=== PATIENT | female | born 1985 | race Caucasian/White ===

== ENCOUNTER 2019-10-05 02:14 | Inpatient (IN) ==
[2019-10-05] MEDS ORDERED: OXYTOCIN 30 UNITS/500 ML BAG IV PRN ×3 (03:14→19:24)
[2019-10-05] MEDS: LACTATED RINGER'S 1,000 ML IV PRN ×5 (03:29→17:26)
--- NOTE | 2019-10-05 03:29 | History & Physical Report ---
Date of Service October 05, 2019 Assessment & Plan (1) Diet controlled gestational diabetes mellitus (GDM), antepartum: 33yo at 39.1 weeks GA. PROM. 1. Fetus: Cat 1 at present. Had variable decel soon after presentation 2. Labor: Will augment with oxytocin 3. A1gDM: Check BG 4. Abnormal NTD screening. Normal anatomy scan. Will notify peds. (2) Supervision of elderly primigravida, antepartum: (3) Abnormal MSAFP (maternal serum alpha-fetoprotein), elevated: History of Present Illness Primary Care Provider: NEY Abebe 33yo at 39.1 weeks GA. Patient presents with PROM. Reports mild ctx. Denies VB/LOF. Good FM. complications: 1. AMA *weekly NST's @36 wks 2. Obestiy *BMI 35 or> at start of - Growth US @32 wks w/ EFW 36% 3. 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 AFP Positive for NTD- HK (05/03/19) - Risk 1-230 - Normal Anatomy U/S here - declines MFM consult - weekly NST's at 36 weeks 5. Diet Controlled GDM -AC U/S [id number] at 24 weeks Labs: Blood Type A Positive 03/03/19 Antibody Screen NEGATIVE 03/03/19 Hemoglobin 11.8 g/dL (12.0-16.0) L 07/20/19 Hematocrit 35.3 % (37-47) L 07/20/19 Mean Corpuscular Volume 88.1 fL (80-100) 03/03/19 Platelet Count 287 K/uL (130-400) 03/03/19 Rubella IgG Antibody Immune (Immune) 03/03/19 Rapid Plasma Reagin Nonreactive (Nonreactive) 03/03/19 Hepatitis B Surface Antigen Neg (Neg) 03/03/19 HIV (1&2) Ab and P24 Ag, 4th Gener Neg (Neg) 03/03/19 Glucose 1 Hour 50 gm Load 179 mg/dl (70-130) H 04/27/19 Maternal Serum Alpha Fetoprotein 70.9 ng/mL 04/27/19 OB Optional Labs: Chlamydia trachomatis RNA NOT DETECTED (NOT DETECTED) 03/03/19 Neisseria gonorrhoeae RNA NOT DETECTED (NOT DETECTED) 03/03/19 Alpha Fetoprotein Triple Screen SEE NOTE 04/27/19 Allergies Allergy/AdvReac Type Severity Reaction Status Date / Time No Known Allergies Allergy Verified 10/05/19 02:41 Home Medications Home Medications Medication Instructions Recorded Confirmed Type prenat.vits,franky,kmo-lgbj-jgwpr 1 tab PO DAILY 02/25/19 10/05/19 History Patient History Social History Smoking Status: Never smoker Hx Alcohol Use: No Hx Substance Use: No Preferred Language: Swedish Communication Ability: Effective Beliefs That Will Affect Care: None marital status: marital status details: Francois Mejia ([phone] Current Living Situation: Spouse Current Living Situation Comment: lives with current occupational status: employed current occupation: 3d specialist Other Information That Helps Us Care for You: No Feels Safe at Home: Yes Safety Concerns: Feels Safe At This Time Physical Exam Gastrointestinal (Abdomen): Percussion/Palpation: abdomen soft; abdomen nontender, no guarding and abdomen not rigid Genitourinary: OB Exam Abdomen: + vertex Manual OB Exam: + cervical dilation 1 cm, + cervical effacement 50%, + station -1 and + amniotic fluid (Grossly ruptured) clear OB Exam Monitor Tracing: + external FHT monitor used, + external uterine monitor used, + category I, + category II (Variable decel soon after admission. Resolved ), + normal FHT variability and + variable decelerations Results & Data ([facility]) Vital Signs (Past 12 Hours) Vital Signs Temp Pulse Resp BP 10/05/19 02:41 37.1 C 18 10/05/19 02:40 89 121/68 Coding Level of Care Code None Diagnoses Diet controlled gestational diabetes mellitus (GDM), antepartum O24.410 Supervision of elderly primigravida, antepartum O09.519 Abnormal MSAFP (maternal serum alpha-fetoprotein), elevated O28.0
[2019-10-05 03:35] LABS: Hematocrit (blood only) 31.6 % (37-47); Hemoglobin 10.9 g/dL (12.0-16.0); Mean Corpuscular Hemoglobin 28.2 pg (25-34); Mean Corpuscular Volume 81.9 fL (80-100); Mean Platelet Volume 8.9 fL (7.4-10.4); Platelet Count 161 K/uL (130-400); RDW Coefficient of Variation 14.5 % (11.5-14.5); RDW Standard Deviation 43.2 fL (36.4-46.3); Red Blood Count 3.86 M/uL (4.2-5.4); White Blood Count 8.31 K/uL (4.8-10.8)
[2019-10-05 03:40] LABS: Mean Corpuscular Hgb Conc 34.5 g/dL (32-36)
[2019-10-05] MEDS ORDERED: BUPIVACAINE 0.25% 30 ML VIAL ONE (11:46)
[2019-10-05] MEDS ORDERED: ePHEDrine sulfate 50 MG/ML AMP ONE (11:46)
--- NOTE | 2019-10-05 11:46 | Labor Progress Brief Note ---
Date of Service October 05, 2019 Subjective Starting to feel more uncomfortable with contractions. FHT Cat 1 [place] Q 2 SVE /-2 She would like to get epidural. Assessment & Plan Admission and Anticipated Discharge Date Admission Date: October 05, 2019 Results & Data ([facility]) Vital Signs (Past 12 Hours) Vital Signs Temp Pulse Resp BP 10/05/19 11:43 80 128/80 10/05/19 11:29 10/05/19 11:04 36.6 C 10/05/19 10:42 79 123/73 10/05/19 10:29 20 10/05/19 09:59 20 10/05/19 09:43 74 140/78 10/05/19 09:29 20 10/05/19 08:59 36.8 C 10/05/19 08:42 78 115/71 10/05/19 08:29 10/05/19 07:59 20 10/05/19 07:43 71 134/82 10/05/19 07:29 10/05/19 07:05 36.8 C 10/05/19 06:42 81 18 125/72 10/05/19 06:19 36.6 C 10/05/19 05:42 66 18 136/82 10/05/19 04:42 36.8 C 68 16 112/69 10/05/19 02:41 37.1 C 10/05/19 02:40 89 121/68 Coding Level of Care Code None
[2019-10-05] MEDS ORDERED: fentaNYL citrate 100 MCG/2 ML VIAL ONE (11:47)
[2019-10-05] MEDS ORDERED: fentaNYL 2MCG/ML ROPIV 1.25MG/ML 100 ML BAG EPI ONE (11:47)
--- NOTE | 2019-10-05 13:25 | Anesthesiology Consultation ---
Date of Service October 05, 2019 Assessment & Plan (1) Encounter for pre-operative examination: Chart Review Chart Review: Patient NOT seen in Pre Admission Testing and Acceptable Risk for Labor Epidural Consults Requested none ASA ASA3 Proposed Anesthesia Anesthesia Type: Labor Epidural Risk / Benefits Reviewed With: PT / POA / Parent / Guardian, Accepts Plan and Informed Consent Obtained History Height/Weight Height: 5 ft 2.5 in Weight: 94.347 kg Allergies Allergy/AdvReac Type Severity Reaction Status Date / Time No Known Allergies Allergy Verified 10/05/19 02:41 Medications Home Medications Medication Instructions Recorded Confirmed Last Taken prenat.vits,franky,fgy-uigj-whbni 1 tab PO DAILY 02/25/19 10/05/19 10/04/19 08:00 Active Medications Generic Name Dose Route Start Last Admin Trade Name Freq PRN Reason Stop Dose Admin Lactated Ringer's 1,000 mls @ 125 mls/hr 10/05/19 03:14 10/05/19 13:27 Lr IV 10/07/19 03:13 125 mls/hr .Q8H PRN Administration L&D Protocol Protocol Oxytocin 30 units in 500 mls @ 10 mls/hr 10/05/19 03:16 10/05/19 11:43 Pitocin IV 10/07/19 03:15 0.6 units/hr .Q24H PRN 10 mls/hr Labor Induction/Augmentation Titration Protocol 0.6 UNITS/HR NPO Date Last Intake of Fluids: 10/05/19 Time Last Intake of Fluids: 13:23 Date Last Intake of Solids: 10/04/19 Time Last Intake of Solids: 18:00 Past Medical History Medical History Advanced maternal age (AMA) in Encounter for anatomic survey Hx of varicella Pilonidal cyst Exercise / Class Metabolic Activity II 4-5 Yardwork/Stairs/Walk up hill Past Family History Family History Mother Dyslipidemia Hypertension Father Heart disease Myocardial infarction Past Surgical History Surgical History Maxwell teeth removed Past Anesthesia History No Hx of Anesthesia Complications History of PONV No Hx of PONV Social History Smoking Status: Never smoker Hx Alcohol Use: No Hx Substance Use: No Review of Systems Negative for chest pain or shortness of breath. Patient denies history of abnormal bleeding or bleeding disorder. Patient denies active use of anticoagulants other than low dose aspirin. Patient denies numbness, tingling or weakness in lower extremities. Physical Exam Vital Signs Last Vital Signs Temp 36.6 C 10/05/19 11:04 Pulse 99 H 10/05/19 13:20 Resp 20 10/05/19 12:29 BP 131/81 10/05/19 12:43 Pulse Ox 99 10/05/19 13:20 Constitutional + obese ENMT Mouth: + small oral opening; no TMJ abnormality Thyromental Distance: < 3.5 Finger Breadths Mallampati Class: III Neck normal visual inspection; neck extension not limited Respiratory normal respiratory effort Auscultation: lungs clear to auscultation bilaterally Cardiovascular Rate/Rhythm: regular rate and regular rhythm Heart Sounds: no murmur Neurologic moves all extremities Motor/Sensory: no sensory deficit Psychiatric Orientation: alert and oriented x 3 Testing Laboratory Results 10/05/19 03:24 10/05/19 05:11 POC Glucose 80
[2019-10-05] MEDS ORDERED: ONDANSETRON INJ 2 MG/ML 2 ML VIAL IV PRN (14:35)
[2019-10-05] MEDS ORDERED: DiphenhydrAMINE HCL 50 MG/ML VIAL IV PRN (14:35)
[2019-10-05] MEDS ORDERED: fentaNYL 2MCG/ML ROPIV 1.25MG/ML 100 ML BAG EPI PRN (14:35)
[2019-10-05] MEDS ORDERED: ePHEDrine sulfate 50 MG/ML AMP IV PRN (14:35)
[2019-10-05] MEDS ORDERED: NALOXONE HCL 1 MG in SODIUM CHLORIDE 0.9% 1000ML 1,000 ML IV PRN (14:35)
[2019-10-05] MEDS ORDERED: NALOXONE HCL 0.4 MG/1 ML VIAL/CARP IV PRN (14:35)
--- NOTE | 2019-10-05 19:04 | Delivery Summary ---
Vaginal Delivery Summary Date of Service October 05, 2019 Vaginal Delivery Summary Vaginal Delivery Summary: Pre-delivery diagnoses: 33yo @ 39 1/7, PROM, AMA, GDMA1, obesity, carrier of CF (FOB neg), AFP positive for NTD with normal anatomy Post-delivery diagnoses: same Procedure: spontaneous vaginal delivery, repair of 2nd degree perineal laceration, manual extraction of placenta Surgeon: Wendy Ibarra DO Complications: none Findings: Viable female . Apgars: 7/9 . Weight pending, please see nursery records Estimated blood loss: 300ml Description of delivery: The patient progressed to complete with epidural anesthesia. She then began to push. She spontaneously vaginally delivered a viable from the cephalic presentation. The head delivered in KEANU position. The anterior shoulder delivered, followed by the posterior shoulder, followed by the body. Nuchal cord x 1, loose, easily reduced. The baby was placed on mother's abdomen and a spontaneous cry was heard. Delayed cord clamping was employed, and the cord was doubly clamped and cut. Cord blood was obtained. The placenta was delivered by manual extraction from the uterus after avulsion of the umbilical cord. The uterus and vagina were swept of clots and debris. IV pitocin was given. The uterus became firm. The cervix, vagina, and perineum were inspected and a 2nd degree laceration was noted and repaired in standard fashion with 3-0 vicryl. Excellent hemostasis was observed. The mother and baby are recovering in stable and good condition in the room. Sponge, needle, and instrument counts were correct x 2. Wendy Ibarra DO [facility] Vaginal Delivery Charge Vaginal Delivery Codes: 86621 global code for the antepartum, delivery, and post-
--- NOTE | 2019-10-05 19:17 | Anesthesia Procedure Note ---
Date of Service October 05, 2019 Anesthesia Post Epidural Note Vital Signs Vital Signs: Temp Pulse Resp BP Pulse Ox 36.6 C 105 H 18 104/56 L 94 10/05/19 18:55 10/05/19 19:10 10/05/19 18:55 10/05/19 19:10 10/05/19 18:58 Pain Intensity Abdomen: Pain Intensity: 1 Notes Mental Status: alert / awake / arousable and participated in evaluation Nausea / Vomiting: adequately controlled Pain: adequately controlled Airway Patency, RR, SpO2: stable & adequate BP & HR: stable & adequate Hydration State: stable & adequate Neuraxial Anesthesia: was administered and sensory block is resolving Anesthetic Complications: no major complications apparent and Pt Satisfied with anesthetic care Epidural: Removed without complications and With tip intact Notes: Epidural site clean, dry and intact. No signs of edema, erythema or bruising at insertion site. Pt instructed to request anesthesia if she has residual lower extremity numbness or if she develops lower extremity pain or weakness, back pain or headache.
[2019-10-05] MEDS ORDERED: BENZOCAINE 20% AER SPR 82.5 GM CAN EXT PRN (19:24)
[2019-10-05] MEDS ORDERED: OXYCODONE/ACETAMINOPHEN 5mg/325mg TAB PO PRN (19:24)
[2019-10-05] MEDS ORDERED: DIPHTHERIA/TETANUS/PERTUSSIS 0.5 ML SYR/VIAL IM ONE (19:24)
[2019-10-05] MEDS ORDERED: ACETAMINOPHEN 325 MG TAB PO PRN (19:24)
[2019-10-05] MEDS ORDERED: bisacodyL 10 MG SUPP PR PRN (19:24)
[2019-10-05] MEDS ORDERED: HYDROCORTISONE ACETATE 25 MG SUPP PR PRN (19:24)
[2019-10-05] MEDS ORDERED: IBUPROFEN 600 MG TAB PO PRN (19:24)
[2019-10-05] MEDS ORDERED: SUPERCREAM 0.870% 15 GM JAR EXT PRN (19:24)
[2019-10-05] MEDS: DOCUSATE SODIUM 100 MG CAP PO SCH (20:25)
[2019-10-05] MEDS: CEFAZOLIN 1000MG 1,000 MG/7.5 ML SYR IV SCH (20:26)
[2019-10-06] MEDS: CEFAZOLIN 1000MG 1,000 MG/7.5 ML SYR IV SCH (05:08)
--- NOTE | 2019-10-06 06:27 | Obstetrical Progress Note ---
Date of Service <Arsh Caba MD - Last Filed: 10/06/19 06:55> October 06, 2019 Assessment & Plan <Arsh Caba MD - Last Filed: 10/06/19 06:55> (1) : - Feels well today. Eating well, voiding well, ambulating well. - Pain well controlled with analgesics. - Routine care - After discharge will have 6 week followup. Subjective <Arsh Caba MD - Last Filed: 10/06/19 06:55> Cadence is a 33 y/o female ; PPD #1 following spontaneous vaginal delivery at 39+ weeks; doing well this morning; light abdominal cramping & 1/10 pain well managed on analgesics; voiding well; tolerating meals overnight and able to ambulate some; some persistent lochia with some improvement this morning. Review of Systems Constitutional: denies fever, chills, sweat, headache Respiratory: denies shortness of breath, difficulty breathing Cardiac: denies chest pain, palpitations, chest pressure Breast: denies breast pain : denies dysuria Physical Exam <Arsh Caba MD - Last Filed: 10/06/19 06:55> General: Alert, oriented. No acute distress. Cardiac: Regular rate and rhythm, no murmurs/rubs/gallops. Respiratory: Clear to auscultation bilaterally a/p, no wheezes/rales/rhonchi. No increased work of breathing. Symmetrical chest rise. No respiratory distress. Abdomen: Soft, nontender, nondistended. Bowel sounds present. Uterus: Uterine fundus firm, palpable 1cm below umbilicus. Lower Extremities: No lower extremity edema or swelling. No deep calf pain. Chery's negative bilaterally. Results & Data <Arsh Caba MD - Last Filed: 10/06/19 06:55> Vital Signs (Past 12 Hours) Vital Signs Temp Pulse Pulse Resp BP BP Pulse Ox 10/06/19 04:45 36.7 C 83 18 108/63 10/05/19 23:50 36.4 C L 72 20 129/76 10/05/19 21:25 36.7 C 101 H 18 107/75 10/05/19 20:55 36.8 C 100 H 18 101/61 10/05/19 20:40 101 H 108/61 10/05/19 20:25 101 H 18 108/57 L 10/05/19 20:10 88 102/56 L 10/05/19 19:57 82 18 95/55 L 10/05/19 19:40 89 18 102/51 L 10/05/19 19:25 95 H 18 102/56 L 10/05/19 19:10 36.7 C 105 H 18 104/56 L 10/05/19 18:58 102 H 94 10/05/19 18:56 102 H 96 10/05/19 18:55 36.6 C 101 H 18 106/57 L 10/05/19 18:53 107 H 94 10/05/19 18:51 103 H 97 10/05/19 18:48 108 H 94 10/05/19 18:46 106 H 96 10/05/19 18:41 111 H 94 10/05/19 18:40 103 H 132/60 94 10/05/19 18:36 136 H 98 10/05/19 18:31 139 H 90 10/05/19 18:27 127 H 92 10/05/19 18:26 124 H 95 <Wendy Ibarra DO - Last Filed: 10/06/19 09:22> Co-Signing Physician Notes Resident Physician Supervision Note: I was present with Dr. Baldwin during the history and exam. I discussed the case with the resident and agree with the findings and plan as documented in the note. Any exceptions or clarifications are listed here: PPD#1 doing well. Anticipate DC home tomorrow. Documented By: Wendy Ibarra DO Resident Activity Tracking <Arsh Caba MD - Last Filed: 10/06/19 06:55> Resident Involvement: Resident Care Provided Care Provided: OB Delivery
[2019-10-06 06:47] LABS: Hematocrit (blood only) 30.7 % (37-47)
[2019-10-06] MEDS: PRENATAL VITAMIN 1 TAB PO SCH ×2 (07:42→13:05)
[2019-10-06] MEDS: DOCUSATE SODIUM 100 MG CAP PO SCH ×2 (07:43→20:38)
[2019-10-06] MEDS ORDERED: NON-FORMULARY MEDICATION (Prenat.Vits,Cal,Min-Iron-Folic 1 TAB) PO SCH (09:00)
[2019-10-06] MEDS ORDERED: bisacodyL 5 MG TABEC PO SCH (20:00)
--- NOTE | 2019-10-07 07:02 | Obstetrical Progress Note ---
Date of Service October 07, 2019 Assessment & Plan (1) examination following vaginal delivery: stable, ready for d/c home, instructions reviewed. plan 6 wk pp check up. bottle, rh pos, ri. Day #:: 2 Subjective Ambulation: ambulating normally Voiding: no voiding problems Diet Tolerance:: regular diet Lochia:: Small Feeding Type:: bottle feeding no pain issues. bottom is intermittently sore. has chosen to bottle feed. Physical Exam Constitutional WD/WN, vitals as above Respiratory normal respiratory effort, lungs clear to auscultation Cardiovascular Rate/Rhythm: regular rate and regular rhythm Gastrointestinal (Abdomen) Inspection/Auscultation: abdomen normal to inspection Percussion/Palpation: abdomen soft fundus firm 1 cm below umbilicus Musculoskeletal nt calves no edema Neurologic grossly normal Psychiatric A+Ox3, euthymic affect Results & Data ([facility]) Vital Signs (Past 12 Hours) Vital Signs Temp Pulse Resp BP Pulse Ox 10/07/19 03:25 98.4 F 76 18 108/69 99 10/06/19 23:35 98.2 F 76 18 113/78 99 10/06/19 20:45 97.9 F 82 16 122/82 100
[2019-10-07] MEDS: DOCUSATE SODIUM 100 MG CAP PO SCH (07:51)
[2019-10-07] MEDS: PRENATAL VITAMIN 1 TAB PO SCH (07:51)
== END 2019-10-07 18:40 | disposition home or self-care (01) | DRG 807 ==
LOC: OPB 02:14 → 4S1 02:17 → 4S2 21:18

== ENCOUNTER 2022-08-27 06:54 | Inpatient (IN) ==
[2022-08-27] MEDS ORDERED: LIDOCAINE 1% LOCAL 20 ML VIAL ONE (07:10)
[2022-08-27] MEDS ORDERED: OXYTOCIN 10 UNITS/ML 10ML VIAL IM ONE (07:39)
[2022-08-27] MEDS ORDERED: HYDROCORTISONE ACETATE 25 MG SUPP PR PRN (07:39)
[2022-08-27] MEDS ORDERED: LIDOCAINE 1% LOCAL 20 ML VIAL INFIL PRN (07:39)
[2022-08-27] MEDS ORDERED: miSOPROStoL 200 MCG TAB PR ONE (07:39)
[2022-08-27] MEDS ORDERED: BENZOCAINE 20% AER SPR 82.5 GM CAN EXT PRN (07:39)
[2022-08-27] MEDS ORDERED: bisacodyL 10 MG SUPP PR PRN (07:39)
[2022-08-27] MEDS ORDERED: DIPHTHERIA/TETANUS/PERTUSSIS Vaccine (Tdap, Age 7+yrs) 0.5mL SYR/VL IM ONE (07:39)
[2022-08-27] MEDS ORDERED: ACETAMINOPHEN 325 MG TAB PO PRN (07:39)
[2022-08-27] MEDS ORDERED: OXYTOCIN 30 UNITS/500 ML BAG IV PRN (07:39)
[2022-08-27 08:18] LABS: Hematocrit (blood only) 33.5 % (37.0-47.0); Hemoglobin 11.1 g/dl (12.0-16.0); Mean Corpuscular Hemoglobin 26.9 pg (25.0-34.0); Mean Corpuscular Hgb Conc 33.1 g/dL (32.0-36.0); Mean Corpuscular Volume 81.3 fL (80.0-100.0); Mean Platelet Volume 9.6 fL (9.4-12.4); Platelet Count 155 K/uL (130-400); RDW Coefficient of Variation 15.8 % (11.5-14.5); RDW Standard Deviation 46.7 fL (36.4-46.3); Red Blood Count 4.12 M/uL (4.20-5.40); White Blood Count 12.87 K/ul (4.8-10.8)
[2022-08-27] MEDS: PRENATAL VITAMIN 1 TAB PO SCH (09:21)
[2022-08-27] MEDS: FERROUS SULFATE 325 MG TAB PO SCH (09:22)
[2022-08-27] MEDS: DOCUSATE SODIUM 100 MG CAP PO SCH ×2 (09:22→20:22)
[2022-08-27] MEDS ORDERED: OXYTOCIN 10 UNITS/ML VIAL ONE (09:33)
--- NOTE | 2022-08-27 10:11 | Delivery Summary ---
DATE OF SERVICE: 08/27/2022. PROCEDURE: Normal spontaneous vaginal delivery with second-degree perineal laceration repair. SURGEON: Nando Cartagena MD. PREOPERATIVE DIAGNOSES: 1. Single intrauterine at 40 weeks 6 days gestational age. 2. Spontaneous precipitous labor. 3. Gestational diabetes. 4. Advanced maternal age. 5. BMI greater than 35. POSTOPERATIVE DIAGNOSES: 1. Single intrauterine at 40 weeks 6 days gestational age. 2. Spontaneous precipitous labor. 3. Gestational diabetes. 4. Advanced maternal age. 5. BMI greater than 35. 6. Status post procedure. ESTIMATED BLOOD LOSS: 300 mL DRAINS: None. FLUIDS: None. COMPLICATIONS: None. FINDINGS: Viable with weight pending and Apgars of 7 and 9 at one and five minutes respect jaiden. HOSPITAL COURSE: The patient was admitted in precipitous labor at complete-complete, +2 station with a strong urge to push. The patient pushed over approximately 2 contractions to achieve delivery. DESCRIPTION OF PROCEDURE: The patient progressed to 10 cm dilated, 100% effaced, positive 2 station, pushed over intact perineum without anesthesia and delivered a viable with weight and Apgars as noted above. Head of the delivered in KEANU position, restituted to left transverse. A do uble nuchal cord was noted. Body and shoulders quickly followed. was noted to have good ton e, but without spontaneous cry immediately. A good stimulation was performed with some occas ional spontaneous cries. Cord was then double clamped and cut. taken over to the [facility] staff and was noted to be vigorous soon thereafter. Cord blood was obtained. There was noted to be a true knot in the umbilical cord. Attention was then turned to delivery of the placenta, whic h was delivered intact, 3-vessel cord, gentle cord traction. 10 mg of IM Pitocin were dosed and uteri ne massage was performed. Minimal bleeding noted. A second-degree perineal laceration was noted, wh ich was repaired with 3-0 Vicryl in a traditional crown stitch. Needle, sponge, and instrument count s were correct at the completion of the case, 800 mcg of Cytotec placed per rectum for bleeding contr ol as the patient did not have an IV. Job ID: [id number]
[2022-08-27] MEDS: IBUPROFEN 600 MG TAB PO PRN (14:49)
[2022-08-28 06:45] LABS: Hematocrit (blood only) 32.3 % (37.0-47.0); Hemoglobin 10.6 g/dl (12.0-16.0)
--- NOTE | 2022-08-28 07:43 | Obstetrical Progress Note ---
Date of Service August 28, 2022 Assessment & Plan (1) Supervision of elderly multigravida: day #1 and routine care to continue, plan D/C in AM (2) Gestational diabetes mellitus (GDM) affecting , antepartum: (3) Obesity affecting , antepartum: Subjective Ambulation: ambulating normally Voiding: no voiding problems Passing Gas:: Yes Diet Tolerance:: regular diet Lochia:: Small Feeding Type:: bottle feeding Current Pain Level(1-10): 0 Physical Exam Constitutional WD/WN, vitals as above Eyes PERRL, conjunctivae normal, anicteric sclerae ENMT external ear and nose normal, oropharynx normal Neck trachea midline, no thyromegaly Respiratory normal respiratory effort and able to speak in complete sentences; no respiratory distress, no labored breathing and does not use accessory muscles Cardiovascular Rate/Rhythm: regular rate and regular rhythm Extremities: no calf tenderness and no pedal edema Chest (Breasts) Breast: normal inspection of breasts Gastrointestinal (Abdomen) Inspection/Auscultation: abdomen normal to inspection; abdomen not distended Musculoskeletal no cyanosis or clubbing, extremities motor strength 5/5 Skin no rashes, warm and dry Neurologic patellar DTR's 2+ bilat, sensation intact Psychiatric A+Ox3, euthymic affect Genitourinary Speculum/Bimanual Exam: uterus nontender OB Exam Abdomen: + fundal height (at umbilicus) Fundus: + firm Results & Data Vital Signs (Past 12 Hours) Vital Signs Temp Pulse Resp BP Pulse Ox O2 Del Method 08/28/22 04:15 97.7 F 70 18 98/66 L 96 Room Air 08/27/22 23:05 98.6 F 78 18 106/73 97 Room Air 08/27/22 20:45 97.9 F 82 20 102/68 96 Room Air
[2022-08-28] MEDS: DOCUSATE SODIUM 100 MG CAP PO SCH ×2 (07:55→21:12)
[2022-08-28] MEDS: FERROUS SULFATE 325 MG TAB PO SCH (07:55)
[2022-08-28] MEDS: PRENATAL VITAMIN 1 TAB PO SCH (07:55)
[2022-08-28] MEDS ORDERED: bisacodyL 5 MG TABEC PO SCH (20:00)
[2022-08-28] MEDS: IBUPROFEN 600 MG TAB PO PRN (23:33)
--- NOTE | 2022-08-29 06:49 | Obstetrical Progress Note ---
Date of Service August 29, 2022 Assessment & Plan (1) Gestational diabetes mellitus (GDM) affecting , antepartum: (2) Encounter for care and examination after delivery: Plan 36 yo PP2 from , doing well -Meeting all pp milestones -A+/rubella immune -f/u 6 weeks for appt, stable for dc home Subjective Ambulation: ambulating normally Voiding: no voiding problems Passing Gas:: Yes Diet Tolerance:: regular diet Lochia:: Small Feeding Type:: breast feeding Pain well managed with medication Review of Systems Denies fevers, chills, n/v, RYDER, CP, SOB Physical Exam Constitutional WD/WN, vitals as above no acute distress Respiratory normal respiratory effort, lungs clear to auscultation Cardiovascular RRR, no murmur, no edema Gastrointestinal (Abdomen) Percussion/Palpation: abdomen soft; abdomen nontender fundus firm at umbilicus and NT Musculoskeletal BLE symmetric, nonerythematous, nontender Results & Data Vital Signs (Past 12 Hours) Vital Signs Temp Pulse Resp BP Pulse Ox O2 Del Method 08/28/22 23:11 97.7 F 65 20 116/79 97 Room Air 08/28/22 19:32 97.7 F 73 18 104/70 98 Room Air
[2022-08-29 09:44] VITALS: BP 102/57; PULSE 76; TEMP 97.9; O2SAT 96
[2022-08-29] MEDS: PRENATAL VITAMIN 1 TAB PO SCH (09:44)
[2022-08-29] MEDS: DOCUSATE SODIUM 100 MG CAP PO SCH (09:44)
[2022-08-29] MEDS: FERROUS SULFATE 325 MG TAB PO SCH (09:44)
== END 2022-08-29 11:30 | disposition home or self-care (01) | DRG 807 ==
LOC: 4S1 06:54 → 4E2 10:09

== ENCOUNTER 2025-02-25 17:26 | Inpatient (IN) ==
--- NOTE | 2025-02-25 17:33 | Emergency Department Note ---
Impression & Plan Urolithiasis, Hydronephrosis, Complicated UTI (urinary tract infection), Acute hypokalemia, Leukocytosis ED Provider Note NAME: JESSEE GERMAN AGE: 39 SEX: F : 1985 ARRIVES VIA: Walk-In INFORMANT: Patient ED PROVIDER(S): Davis Rosen DO CHIEF COMPLAINT: Hip pain HPI: This is a 39-year-old female with the PMHx of anxiety presenting to [facility] for further evaluation of hip pain. Patient states that her symptoms have been ongoing for few weeks but worsened over the past few days. Patient states she struggling to sleep secondary to the pain. Describes this as the right hip but seems to be more right lower quadrant. Patient states that she has had some urinary frequency and dysuria. She does report generalized weakness. Patient states that she has had the chills but no documented fevers. She feels that she may have had a fever at home over the last few days. Patient denies any abdominal surgical history. Patient denies the possibility of . No trauma or injury. Denies overuse. No cough or congestion. Denies chest pain or palpitations. No shortness of breath. Mild nausea without emesis. No recent changes in bowel movements. Patient denies recent changes in medications or OTC supplements. Patient offers no other complaints, today. ADDITIONAL HISTORY OBTAINED: Per HPI Chronic Medical/Social Conditions Affecting Care: Per HPI PAST MEDICAL HISTORY: See Below PAST SURGICAL HISTORY: See Below FAMILY HISTORY: See Below SOCIAL HISTORY: See Below HOME MEDICATIONS: See Below ALLERGIES: See Below VITALS: See Below PHYSICAL EXAMINATION: GENERAL: Sitting up in bed, alert, well appearing, well nourished, no distress, non-toxic EYE EXAM: normal conjunctiva. OROPHARYNX: no exudate, no erythema, lips, buccal mucosa, and tongue normal and mucous membranes are dry NECK: supple, no nuchal rigidity, no adenopathy, non-tender LUNGS: Clear to auscultation. Normal chest wall mechanics HEART: no murmurs, tachycardic rate, regular rhythm ABDOMEN: abdomen soft, RLQ TTP, no masses, no rebound or guarding. BACK: Back is symmetrical on inspection and there is no deformity, no midline tenderness, no CVA tenderness. SKIN: no rashes and no bruising UPPER EXTREMITIES: upper extremities are grossly normal. LOWER EXTREMITIES: No pitting edema. NEURO EXAM: Normal sensorium, GCS 15, normal speech, no gross weakness of arms, no weakness of legs. MEDICAL DECISION MAKING: Differential diagnoses includes but not limited to appendicitis, bowel obstruction, diverticulitis, malignancy, nephrolithiasis, gastroenteritis, ACS, PNA, pancreatitis, hepatobiliary disease, UTI, hip MSK strain, osteoarthritis, fracture, dislocation In summary, this is a 39 year old female who presented with hip pain. Differential as above. Nursing notes and pertinent past medical records reviewed. Vital signs reviewed and the patient is tachycardic but otherwise afebrile and HDS. History and presentation revealed ongoing hip pain now with chills and urinary symptoms. I do not believe the patient's pain is actually correlating to the hip joint. She has no trauma or overuse. She is relatively young and healthy. I do feel the patient has more so right lower quadrant tenderness on examination and do believe this is likely genitourinary or abdominal pathology rather than the hip. Physical examination revealed as above. As a result of my initial evaluation, IV access was established and the patient was placed on CCRM. Therapeutics ordered include IVFR given tachycardia. Will plan for labs as well as CT abdomen/pelvis for further characterization of the patient's symptoms today. Diagnostics interpreted by me include EKG and cardiac monitoring as listed below: -Cardiac Monitoring: An order was placed for continuous cardiac monitoring. The monitor shows a rate of 100-120s with regular rhythm. -ECG: Sinus tachycardia at a rate of [address] segment changes to suggest STEMI. Intervals are otherwise within normal limits. Patient completed laboratory studies and imaging. Results independently interpreted by me are mild leukocytosis. No significant anemia. Normal kidney function and LFTs. Potassium noted to be low, PO replenishment with 40 mEq KCl ordered. The patient was managed with 2 L of IV fluid resuscitation and Toradol. Patient UA does appear infected. CT abdomen/pelvis shows compressive lymphadenopathy as well as an obstructing urolithiasis. There is hydronephrosis present. Given this and tachycardia as well as leukocytosis, I do believe the patient likely has an infected kidney stone. Patient was discussed with urology. Patient will be started on IV ceftriaxone. She was given 2 g of IV ceftriaxone under my care. Managed further with Toradol for pain control. Patient agreeable to admission. Patient may benefit from urologic intervention. Ultimately, the decision was made to admit the patient for complicated UTI secondary to obstructing urolithiasis as well as a compressive lymphadenopathy and persistent tachycardia. I discussed the case with the hospitalist service via telephone/[employer] and they are agreeable to admit the patient to their services. Based on the above, including the patient's age, coexisting illnesses, labs, imaging, and exam findings the decision to treat as an inpatient. I discussed the patient with the hospitalist team who recommended admission to their services. They received the medications, treatments, interventions indicated above and their condition remained guarded. I discussed my findings with the patient and their family and they understand and agree with the treatment plan. All patient / family questions were answered to their satisfaction. Case discussed with consultants including Urology, Dr. Andrews. He feels the patient is safe to be evaluated in the AM. Consults/Care Managements Discussions: Per MDM ER treatment provided: See above Procedures: None Critical Care: None The chart was completed utilizing [employer] Speech voice recognition software. Grammatical errors, random word insertions, pronoun errors, and incomplete sentences are an occasional consequence of this system due to software limitations, ambient noise, and hardware issues. Any formal questions or concerns about the content, text, or information contained within the body of this dictation should be directly addressed to the physician for clarification. Past Med/Surg History Problem List (Updated 02/26/25 @ 02:26 by Davis Rosen, DO) Leukocytosis (Acute) Acute hypokalemia (Acute) Complicated UTI (urinary tract infection) (Acute) Hydronephrosis (Acute) Urolithiasis (Acute) Urinary tract infection Hypokalemia Right distal ureteral calculus Hydronephrosis of right kidney Anxiety Screening for breast cancer Obesity (BMI 30-39.9) Intraductal papilloma of right breast Encounter for care and examination after delivery Obesity affecting , antepartum Cystic fibrosis carrier Gestational diabetes mellitus (GDM) affecting , antepartum Supervision of elderly multigravida Encounter for anatomic survey Medical History Diet controlled gestational diabetes mellitus (GDM), antepartum Abnormal MSAFP (maternal serum alpha-fetoprotein), elevated Advanced maternal age (AMA) in Hx of varicella Pilonidal cyst Surgical History S/P surgical removal of pilonidal cyst [place] teeth removed Family History Mother Dyslipidemia Hypertension Father Heart disease Myocardial infarction Denies family history of Ovarian cancer Prostate cancer Diabetes Breast cancer Lung cancer Colorectal cancer Cancer Social History Smoking Status: Never smoker Second Hand Exposure: No; Do You Dip or Chew Tobacco: No; Hx Alcohol Use: No Hx Substance Use: No Preferred Language: Slovak Communication Ability: Effective Visual Impairment: No Limitations Hearing Ability: Normal Heavy Cleaner Required: No Beliefs That Will Affect Care: None marital status: marital status details: Francois German (43) [phone] Current Living Situation: Family Current Living Situation Comment: Pt lives with and daughter current occupational status: employed current occupation: [employer] How many Children do You have: 2 Other Information That Helps Us Care for You: No Feels Safe at Home: Yes Safety Concerns: Feels Safe At This Time Childhood Exposure to Second-Hand Smoke: No Diet: regular caffeine: Yes during the past year weight has: remained stable Dental Care, Regularly: Yes Physical Activity Frequency: 1-2 Times per Week Seatbelt Use: always Sunscreen Use: Yes Assistive Devices: Glasses Allergies Allergies Allergy/AdvReac Type Severity Reaction Status Date / Time No Known Allergies Allergy Verified 12/27/24 08:42 Home Meds Previous Rx's Medication Instructions Recorded buspirone 5 mg tablet 5 mg PO BID #180 tabs 12/27/24 Results & Data (ED) Vital Signs Vital Signs - 24 hr 02/25/25 17:28 02/25/25 17:47 02/25/25 18:02 Temperature 36.2 C L Temperature Source Temporal Artery Scan Pulse Rate 123 H 120 H Pulse Rate from SpO2 Sensor Respiratory Rate 20 Respiratory Effort / Characteristics Non-Labored Respiratory Depth Normal Blood Pressure 138/82 Blood Pressure Mean 100 Pulse Oximetry 98 98 Oxygen Delivery Method Room Air Room Air Sepsis Recent Fever Within 48 Hours No Sepsis New/Unexplained Change in Mental Status No Sepsis Action Taken by Nursing No Action Required 02/25/25 19:00 02/25/25 20:00 02/25/25 21:00 Temperature Temperature Source Pulse Rate 115 H 107 H 109 H Pulse Rate from SpO2 Sensor 115 H 107 H 109 H Respiratory Rate 19 20 18 Respiratory Effort / Characteristics Respiratory Depth Blood Pressure 120/86 131/91 137/88 Blood Pressure Mean 97 104 104 Pulse Oximetry 98 99 97 Oxygen Delivery Method Room Air Sepsis Recent Fever Within 48 Hours Sepsis New/Unexplained Change in Mental Status Sepsis Action Taken by Nursing 02/25/25 22:00 02/25/25 22:24 02/25/25 23:00 Temperature Temperature Source Pulse Rate 116 H 115 H Pulse Rate from SpO2 Sensor 117 H Respiratory Rate 20 Respiratory Effort / Characteristics Non-Labored Respiratory Depth Normal Blood Pressure 132/89 Blood Pressure Mean 103 Pulse Oximetry 96 Oxygen Delivery Method Room Air Sepsis Recent Fever Within 48 Hours Sepsis New/Unexplained Change in Mental Status Sepsis Action Taken by Nursing Laboratory Data 02/25/25 17:54 02/25/25 17:54 Lab Results 02/25/25 Range/Units 17:54 WBC 20.43 H (4.8-10.8) K/ul RBC 4.23 (4.20-5.40) M/uL Hgb 12.5 (12.0-16.0) g/dL Hct 36.5 L (37.0-47.0) % MCV 86.3 (80.0-100.0) fL MCH 29.6 (25.0-34.0) pg MCHC 34.2 (32.0-36.0) g/dL RDW Std Deviation 40.3 (36.4-46.3) fL RDW Coeff of [place] 12.8 (11.5-14.5) % Plt Count 322 (130-400) K/uL MPV 8.0 L (9.4-12.4) fL Immature Gran % (Auto) 0.9 % Neut % (Auto) 88.6 % Lymph % (Auto) 7.4 % Brooks % (Auto) 2.9 % Eos % (Auto) 0.1 % Baso % (Auto) 0.1 % Neut # (Auto) 18.07 H (1.40-6.50) K/uL Lymph # (Auto) 1.52 (1.20-3.40) K/uL Brooks # (Auto) 0.60 H (0.11-0.59) K/uL Eos # (Auto) 0.02 (0.00-0.50) K/uL Baso # (Auto) 0.03 (0.00-0.20) K/uL Immature Gran # (Auto) 0.19 (0.01-0.20) K/uL Sodium 137 (136-145) mmol/L Potassium 3.4 L (3.5-5.1) mmol/L Chloride 102 (98-107) mmol/L Carbon Dioxide 27 (21-32) mmol/L Anion Gap 8 (3-11) BUN 4 L (6-23) mg/dl Creatinine 0.58 L (0.6-1.2) mg/dl Est Cr Clr Drug Dosing 146.6 ml/min eGFR 116.52 BUN/Creatinine Ratio 6.9 L (10-20) Glucose 103 H (70-99(Fasting)) mg/dl Calcium 9.5 (8.6-10.3) mg/dl Magnesium 2.2 (1.7-2.4) mg/dl Total Bilirubin 0.6 (0.2-1.0) mg/dl AST 11 L (13-39) U/L ALT 11 (7-52) U/L Alkaline Phosphatase 80 (34-104) U/L Total Protein 8.2 (6.0-8.3) gm/dl Albumin 3.6 (3.4-5.0) gm/dl Globulin 4.6 H (2.5-4.0) gm/dl Albumin/Globulin Ratio 0.8 L (0.9-2) Lipase 10 L (11-82) U/L Procalcitonin 0.06 (0-0.5) ng/ml HCG, Qual Negative (Negative) Urine Color Yellow Urine Appearance Clear (Clear) Urine pH 8.0 H (4.5-7.5) Ur Specific [place] 1.011 (1.000-1.030) Urine Protein Negative (Negative) Urine Glucose (UA) Negative (Negative) Urine Ketones Trace H (Negative) Urine Blood Negative (Negative) Urine Nitrite Negative (Negative) Urine Bilirubin Negative (Negative) Urine Urobilinogen Negative (Negative) Ur Leukocyte Esterase 3+ H (Negative) Urine WBC (Auto) >50 H (0-5) /hpf Urine RBC (Auto) 6-10 H (0-2) /hpf U Hyaline Cast (Auto) 0-2 (0-2) /lpf U Epithel Cells (Auto) 6-10 H (0-2) /hpf Urine Bacteria (Auto) 1+ H (None Seen) Urine Comment Administered Medications Potassium Chloride/Sodium Chloride (Normal Saline W/20 Meq Kcl) 20 meq in 1,000 mls @ 100 mls/hr IV .Q10H STA Stop: 02/26/25 08:57 Last Admin: 02/26/25 00:34 Dose: 100 mls/hr Documented By: EFK Discontinued Medications Parenteral Electrolytes (Plasma-Lyte A Ph 7.4) 1,000 mls @ 999 mls/hr IV .Q1H1M ONE Stop: 02/25/25 18:41 Last Infusion: 02/25/25 19:03 Dose: Infused Documented By: Admin: 02/25/25 18:01 Dose: 999 mls/hr Documented By: ARIANA Ceftriaxone Sodium (Rocephin) 2,000 mg in 50 mls @ 100 mls/hr IV NOW STA Stop: 02/25/25 19:21 Last Infusion: 02/25/25 19:49 Dose: Infused Documented By: Admin: 02/25/25 19:02 Dose: 100 mls/hr Documented By: ARIANA Parenteral Electrolytes (Plasma-Lyte A Ph 7.4) 1,000 mls @ 999 mls/hr IV .Q1H1M ONE Stop: 02/25/25 22:14 Last Infusion: 02/25/25 22:44 Dose: Infused Documented By: Admin: 02/25/25 21:40 Dose: 999 mls/hr Documented By: ARIANA Pantoprazole Sodium (Protonix) 40 mg in 10 mls @ 5 mls/min IV NOW STA Stop: 02/25/25 23:09 Last Admin: 02/25/25 23:56 Dose: 5 mls/min Documented By: HEIDI Ioversol (Optiray 320 100ml) 93 ml IV ONCE ONE Stop: 02/25/25 18:41 Last Admin: 02/25/25 18:41 Dose: 93 ml Documented By: MAIA Ketorolac Tromethamine (Ketorolac Tromethamine 15 Mg/Ml Vial) 10 mg IV NOW ONE Stop: 02/25/25 21:15 Last Admin: 02/25/25 21:40 Dose: 10 mg Documented By: ARIANA Potassium Chloride (Potassium Chloride Crtab 20 Meq Tabcr) 40 meq PO NOW STA Stop: 02/25/25 18:32 Last Admin: 02/25/25 21:40 Dose: 40 meq Documented By: ARIANA Tamsulosin HCl (Tamsulosin Hcl 0.4 Mg Cap) 0.4 mg PO NOW STA Stop: 02/25/25 23:09 Last Admin: 02/25/25 23:56 Dose: 0.4 mg Documented By: HEIDI Imaging Data Radiologist's Impression: Abdomen/Pelvis CT 02/25/25 17:41 CT of the abdomen pelvis with contrast Technique: Postcontrast axial images abdomen and pelvis. Coronal and sagittal reformatted images made available for review. No comparison Findings: Right sided hydroureteronephrosis secondary to a 5 mm distal right ureteral calculus. Additionally there is a soft tissue prominence within the right [place] pelvis adjacent to the right ureter measuring 3.4 x 3.6 cm likely representing conglomeration of lymph nodes. Prostate is normal in size. 1.4 cm right ovarian cyst. Urinary bladder is unremarkable. Bone windows demonstrate no focal abnormality. Lung bases are clear. No free air or intestinal obstruction. Impression Right-sided hydronephrosis secondary to a 0.5 cm distal right ureteral calculus. Additionally there is compression likely from a conglomeration of lymph nodes within the right hemipelvis measuring 3.6 x 3.4 cm. Right-sided hydronephrosis Electronically signed by Otis Mccullough 02-25-2025 9:11 PM Discharge Plan Visit Data Chief Complaint: Hip Pain Stated Complaint: LOWER HIP DISCOMFORT, UNWELL FEELING CHILLS ED Provider: Davis Rosen Discharge Problem: Urolithiasis, Hydronephrosis, Complicated UTI (urinary tract infection), Acute hypokalemia, Leukocytosis Patient Disposition: Admitted As Inpatient Condition: Serious Discharge Instructions Interventions: ED Discharge Assessment Last Done: 02/26/25 00:02
[2025-02-25] MEDS: PLASMA-LYTE A 1,000 ML IV ONE ×2 (18:01→21:40)
[2025-02-25 18:09] LABS: Hematocrit (blood only) 36.5 % (37.0-47.0); Hemoglobin 12.5 g/dL (12.0-16.0); Immature Granulocytes # (auto) 0.19 K/uL (0.01-0.20); Immature Granulocytes % (auto) 0.9 %; Mean Corpuscular Hemoglobin 29.6 pg (25.0-34.0); Mean Corpuscular Volume 86.3 fL (80.0-100.0); Platelet Count 322 K/uL (130-400); RDW Standard Deviation 40.3 fL (36.4-46.3); Red Blood Count 4.23 M/uL (4.20-5.40); White Blood Count 20.43 K/ul (4.8-10.8)
[2025-02-25 18:20] LABS: Pregnancy Test, Serum Negative (Negative)
[2025-02-25 18:22] LABS: Appearance Urine Clear (Clear); Bacteria Urine Automated 1+ (None Seen); Cast Urine Automated 0-2 /lpf (0-2); Glucose Urine UA Negative (Negative); WBC Urine Automated >50 /hpf (0-5)
[2025-02-25 18:26] LABS: Alanine Aminotransferase 11.0 U/L (7-52); Albumin Globulin Ratio 0.8 (0.9-2); Albumin Level 3.6 gm/dl (3.4-5.0); Alkaline Phosphatase 80.0 U/L (34-104); Anion Gap 8.0 (3-11); Bilirubin,Total 0.6 mg/dl (0.2-1.0); Blood Urea Nitrogen 4.0 mg/dl (6-23); Calcium 9.5 mg/dl (8.6-10.3); Carbon Dioxide 27.0 mmol/L (21-32); Chloride 102.0 mmol/L (98-107); Creatinine Clr Calc Pharmacy 146.6 ml/min; Globulin 4.6 gm/dl (2.5-4.0); Glucose 103.0 mg/dl (70-99(Fasting)); Lipase 10.0 U/L (11-82); Potassium 3.4 mmol/L (3.5-5.1); Sodium 137.0 mmol/L (136-145); Total Protein 8.2 gm/dl (6.0-8.3)
[2025-02-25] MEDS: OPTIRAY 320 100ml IV ONE (18:41)
[2025-02-25] MEDS: cefTRIAXone SODIUM 2,000 MG/50 ML BAG IV STA (19:02)
--- NOTE | 2025-02-25 21:11 | CT Scan Report ---
CT of the abdomen pelvis with contrast Technique: Postcontrast axial images abdomen and pelvis. Coronal and sagittal reformatted images made available for review. No comparison Findings: Right sided hydroureteronephrosis secondary to a 5 mm distal right ureteral calculus. Additionally there is a soft tissue prominence within the right [place] pelvis adjacent to the right ureter measuring 3.4 x 3.6 cm likely representing conglomeration of lymph nodes. Prostate is normal in size. 1.4 cm right ovarian cyst. Urinary bladder is unremarkable. Bone windows demonstrate no focal abnormality. Lung bases are clear. No free air or intestinal obstruction. Impression Right-sided hydronephrosis secondary to a 0.5 cm distal right ureteral calculus. Additionally there is compression likely from a conglomeration of lymph nodes within the right hemipelvis measuring 3.6 x 3.4 cm. Right-sided hydronephrosis Electronically signed by Otis Mccullough 02-25-2025 9:11 PM
[2025-02-25] MEDS: POTASSIUM CHLORIDE CRTAB 20 MEQ TABCR PO STA (21:40)
[2025-02-25] MEDS: KETOROLAC TROMETHAMINE 15 MG/ML VIAL IV ONE (21:40)
[2025-02-25] MEDS ORDERED: ACETAMINOPHEN 1,000 MG/100 ML VIAL IV PRN (22:59)
--- NOTE | 2025-02-25 23:07 | History & Physical Report ---
Date of Service February 25, 2025 Assessment & Plan (1) Hydronephrosis of right kidney: (2) Right distal ureteral calculus: (3) Hypokalemia: (4) Urinary tract infection: Plan The patient is a 39-year-old female with past medical history including anxiety, obesity, intraductal papilloma of right breast, and cystic fibrosis carrier. She presents to the emergency department with a few weeks of weakness, chills, right hip pain, and decreased sleep due to pain. Workup in the emergency department included [place] abnormalities: WBC 20.43, potassium 3.4, glucose 103, urinalysis positive for infection. CT scan of abdomen pelvis shows a right 2.5 distal ureteral calculus, and right hydronephrosis. There is also compression from lymphadenopathy group and right hemipelvis of 3.6 x 3.4 cm. 5 mm distal right ureteral calculus/right hydronephrosis/urinary tract infection- NPO Follow urine culture and sensitivity Empiric ceftriaxone 2 g IV every 24 hours Status post 2 L Plasma-Lyte in the ED NSS + KCl 20 mEq at 100 mL/h x 1 L Acetaminophen 1 g IV every 8 hours as needed for mild pain or fever Pantoprazole 40 mg IV now every morning Tamsulosin 0.4 mg p.o. now and every morning Consult urology, see in the a.m., is aware the patient. Hypokalemia- Potassium 3.4 on admission Status post Plasma-Lyte 2 L in the ED NSS + KCl 20 mEq at 100 mL x 1 L Add magnesium level to ED labs Repeat laboratories in a.m. Anxiety- Continue buspirone History of Present Illness Primary Care Provider: NEY Saeed The patient is a 39-year-old female with past medical history including anxiety, obesity, intraductal papilloma of right breast, and cystic fibrosis carrier. She presents to the emergency department with a few weeks of weakness, chills, right hip pain, and decreased sleep due to pain. Workup in the emergency department included [place] abnormalities: WBC 20.43, potassium 3.4, glucose 103, urinalysis positive for infection. CT scan of abdomen pelvis shows a right 2.5 distal ureteral calculus, and right hydronephrosis. There is also compression from lymphadenopathy group and right hemipelvis of 3.6 x 3.4 cm. Allergies Allergy/AdvReac Type Severity Reaction Status Date / Time No Known Allergies Allergy Verified 12/27/24 08:42 Home Medications Medication Instructions Recorded Confirmed Type buspirone 5 mg tablet 5 mg PO BID #180 tabs 12/27/24 02/25/25 Rx Past Med/Surg History Problem List (Updated 02/26/25 @ 01:33 by Newton Hamlin MD) Urinary tract infection Hypokalemia Right distal ureteral calculus Hydronephrosis of right kidney Anxiety Screening for breast cancer Obesity (BMI 30-39.9) Intraductal papilloma of right breast Encounter for care and examination after delivery Obesity affecting , antepartum Cystic fibrosis carrier Gestational diabetes mellitus (GDM) affecting , antepartum Supervision of elderly multigravida Encounter for anatomic survey Medical History Diet controlled gestational diabetes mellitus (GDM), antepartum Abnormal MSAFP (maternal serum alpha-fetoprotein), elevated Advanced maternal age (AMA) in Hx of varicella Pilonidal cyst Surgical History S/P surgical removal of pilonidal cyst [place] teeth removed Family History Mother Dyslipidemia Hypertension Father Heart disease Myocardial infarction Denies family history of Ovarian cancer Prostate cancer Diabetes Breast cancer Lung cancer Colorectal cancer Cancer Social History Smoking Status: Never smoker Second Hand Exposure: No; Do You Dip or Chew Tobacco: No; Hx Alcohol Use: No Hx Substance Use: No Preferred Language: Icelandic Communication Ability: Effective Visual Impairment: No Limitations Hearing Ability: Normal Water Systems Designer Required: No Beliefs That Will Affect Care: None marital status: marital status details: Francois Mejia ([phone] Current Living Situation: Family Current Living Situation Comment: Pt lives with and daughter current occupational status: employed current occupation: [employer] How many Children do You have: 2 Other Information That Helps Us Care for You: No Feels Safe at Home: Yes Safety Concerns: Feels Safe At This Time Childhood Exposure to Second-Hand Smoke: No Diet: regular caffeine: Yes during the past year weight has: remained stable Dental Care, Regularly: Yes Physical Activity Frequency: 1-2 Times per Week Seatbelt Use: always Sunscreen Use: Yes Assistive Devices: Glasses Review of Systems Review of Systems: The patient denies chest pain, palpitations, shortness of breath, dyspnea on exertion, cough, lower extremity swelling, sore throat, fevers, chills, sweats, nausea, vomiting, diarrhea , constipation, blood in urine or stool, dysuria, urinary frequency or urgency, lightheadedness, dizziness, headache, memory loss, loss of consciousness, rash, abnormal bruising or bleeding, imbalance, focal weakness, numbness or tingling in arms or legs, generalized arthralgias or myalgias, neck pain, or night sweats. The review of systems is otherwise negative other than for that already noted above, and at least 10 systems have been reviewed. Physical Exam Physical Exam: The patient is awake, alert and oriented 3, well developed and well nourished, normocephalic and atraumatic, lying in bed and in no acute distress. HEENT--PERRL, EOMI, mucous membranes and oropharynx dry. Neck--supple. No JVD. No bruits. Thyroid normal, trachea midline, no adenopathy. Heart--normal S1 and S2. No murmurs, rubs or gallops. Lungs--clear bilaterally, no respiratory distress, no accessory muscle use. Abdomen--normal bowel sounds and soft. Nontender. Nondistended, no hernias or masses, no organomegaly. Extremities--no cyanosis or clubbing. No edema. There are good distal pulses b/l. Dermatologic--normal skin turgor, normal color, no abnormal lymph nodes, no rash. Neurologic--cranial nerves II through XII grossly intact. Rheumatologic--normal range of motion. Psychiatric--normal affect. Results & Data Results & Data Vital Signs (Past 12 Hours) Vital Signs Temp Pulse Resp BP Pulse Ox O2 Del Method 02/25/25 22:24 115 H 02/25/25 22:00 116 H 20 132/89 96 02/25/25 21:00 109 H 18 137/88 97 02/25/25 20:00 107 H 20 131/91 99 02/25/25 19:00 115 H 19 120/86 98 Room Air 02/25/25 18:02 98 Room Air 02/25/25 17:47 120 H 02/25/25 17:28 36.2 C L 123 H 20 138/82 98 Room Air Laboratory Results Laboratory Results WBC 20.43 K/ul (4.8-10.8) H 02/25/25 17:54 RBC 4.23 M/uL (4.20-5.40) 02/25/25 17:54 Hgb 12.5 g/dL (12.0-16.0) 02/25/25 17:54 Hct 36.5 % (37.0-47.0) L 02/25/25 17:54 MCV 86.3 fL (80.0-100.0) 02/25/25 17:54 MCH 29.6 pg (25.0-34.0) 02/25/25 17:54 MCHC 34.2 g/dL (32.0-36.0) 02/25/25 17:54 RDW Std Deviation 40.3 fL (36.4-46.3) 02/25/25 17:54 RDW Coeff of [place] 12.8 % (11.5-14.5) 02/25/25 17:54 Plt Count 322 K/uL (130-400) 02/25/25 17:54 MPV 8.0 fL (9.4-12.4) L 02/25/25 17:54 Immature Gran % (Auto) 0.9 % 02/25/25 17:54 Neut % (Auto) 88.6 % 02/25/25 17:54 Lymph % (Auto) 7.4 % 02/25/25 17:54 [place] % (Auto) 2.9 % 02/25/25 17:54 Eos % (Auto) 0.1 % 02/25/25 17:54 Baso % (Auto) 0.1 % 02/25/25 17:54 Neut # (Auto) 18.07 K/uL (1.40-6.50) H 02/25/25 17:54 Lymph # (Auto) 1.52 K/uL (1.20-3.40) 02/25/25 17:54 [place] # (Auto) 0.60 K/uL (0.11-0.59) H 02/25/25 17:54 Eos # (Auto) 0.02 K/uL (0.00-0.50) 02/25/25 17:54 Baso # (Auto) 0.03 K/uL (0.00-0.20) 02/25/25 17:54 Immature Gran # (Auto) 0.19 K/uL (0.01-0.20) 02/25/25 17:54 Sodium 137 mmol/L (136-145) 02/25/25 17:54 Potassium 3.4 mmol/L (3.5-5.1) L 02/25/25 17:54 Chloride 102 mmol/L (98-107) 02/25/25 17:54 Carbon Dioxide 27 mmol/L (21-32) 02/25/25 17:54 Anion Gap 8 (3-11) 02/25/25 17:54 BUN 4 mg/dl (6-23) L 02/25/25 17:54 Creatinine 0.58 mg/dl (0.6-1.2) L 02/25/25 17:54 Est Cr Clr Drug Dosing 146.6 ml/min 02/25/25 17:54 eGFR 116.52 02/25/25 17:54 BUN/Creatinine Ratio 6.9 (10-20) L 02/25/25 17:54 Glucose 103 mg/dl (70-99(Fasting)) H 02/25/25 17:54 Calcium 9.5 mg/dl (8.6-10.3) 02/25/25 17:54 Total Bilirubin 0.6 mg/dl (0.2-1.0) 02/25/25 17:54 AST 11 U/L (13-39) L 02/25/25 17:54 ALT 11 U/L (7-52) 02/25/25 17:54 Alkaline Phosphatase 80 U/L (34-104) 02/25/25 17:54 Total Protein 8.2 gm/dl (6.0-8.3) 02/25/25 17:54 Albumin 3.6 gm/dl (3.4-5.0) 02/25/25 17:54 Globulin 4.6 gm/dl (2.5-4.0) H 02/25/25 17:54 Albumin/Globulin Ratio 0.8 (0.9-2) L 02/25/25 17:54 Lipase 10 U/L (11-82) L 02/25/25 17:54 Procalcitonin 0.06 ng/ml (0-0.5) 02/25/25 17:54 HCG, Qual Negative (Negative) 02/25/25 17:54 Urine Color Yellow 02/25/25 17:54 Urine Appearance Clear (Clear) 02/25/25 17:54 Urine pH 8.0 (4.5-7.5) H 02/25/25 17:54 Ur Specific [place] 1.011 (1.000-1.030) 02/25/25 17:54 Urine Protein Negative (Negative) 02/25/25 17:54 Urine Glucose (UA) Negative (Negative) 02/25/25 17:54 Urine Ketones Trace (Negative) H 02/25/25 17:54 Urine Blood Negative (Negative) 02/25/25 17:54 Urine Nitrite Negative (Negative) 02/25/25 17:54 Urine Bilirubin Negative (Negative) 02/25/25 17:54 Urine Urobilinogen Negative (Negative) 02/25/25 17:54 Ur Leukocyte Esterase 3+ (Negative) H 02/25/25 17:54 Urine WBC (Auto) >50 /hpf (0-5) H 02/25/25 17:54 Urine RBC (Auto) 6-10 /hpf (0-2) H 02/25/25 17:54 U Hyaline Cast (Auto) 0-2 /lpf (0-2) 02/25/25 17:54 U Epithel Cells (Auto) 6-10 /hpf (0-2) H 02/25/25 17:54 Urine Bacteria (Auto) 1+ (None Seen) H 02/25/25 17:54 Urine Comment 02/25/25 17:54 Impressions Abdomen/Pelvis CT 02/25/25 17:41 CT of the abdomen pelvis with contrast Technique: Postcontrast axial images abdomen and pelvis. Coronal and sagittal reformatted images made available for review. No comparison Findings: Right sided hydroureteronephrosis secondary to a 5 mm distal right ureteral calculus. Additionally there is a soft tissue prominence within the right [place] pelvis adjacent to the right ureter measuring 3.4 x 3.6 cm likely representing conglomeration of lymph nodes. Prostate is normal in size. 1.4 cm right ovarian cyst. Urinary bladder is unremarkable. Bone windows demonstrate no focal abnormality. Lung bases are clear. No free air or intestinal obstruction. Impression Right-sided hydronephrosis secondary to a 0.5 cm distal right ureteral calculus. Additionally there is compression likely from a conglomeration of lymph nodes within the right hemipelvis measuring 3.6 x 3.4 cm. Right-sided hydronephrosis Electronically signed by Otis Mccullough 02-25-2025 9:11 PM Code Status & VTE Plan Code Status Full code VTE Prophylaxis Plan VTE Prophylaxis will be ordered: Yes PG Care Time/CCT Total # of Minutes Spent Total Time Spent with Patient: Total time spent is greater than 50% in coordination of care (as documented) at patient's floor/unit and/or counseling patient: Coding Level of Care Code 79272 INT INP/OBS CARE 3/75MIN Diagnoses Hydronephrosis of right kidney N13.30 Right distal ureteral calculus N20.1 Hypokalemia E87.6 Urinary tract infection N39.0
[2025-02-25] MEDS: PANTOprazole 40 MG/10 ML SYR IV STA (23:56)
[2025-02-25] MEDS: TAMSULOSIN HCL 0.4 MG CAP PO STA (23:56)
[2025-02-26] MEDS ORDERED: ONDANSETRON INJ 2 MG/ML 2 ML VIAL IV PRN (00:29)
[2025-02-26] MEDS: NSS + 20MEQ KCL 20 MEQ/1,000 ML BAG IV STA (00:34)
[2025-02-26 01:52] LABS: Magnesium 2.2 mg/dl (1.7-2.4)
[2025-02-26 03:04] VITALS: TEMP 98.2
[2025-02-26] MEDS: busPIRone 5 MG TAB PO SCH (07:39)
[2025-02-26] MEDS: TAMSULOSIN HCL 0.4 MG CAP PO SCH (07:39)
[2025-02-26] MEDS: PANTOprazole 40 MG/10 ML SYR IV SCH (07:39)
[2025-02-26 07:48] VITALS: PULSE 102; RESP 18; O2SAT 97
--- NOTE | 2025-02-26 08:45 | Anesthesiology Consultation ---
Date of Service February 26, 2025 Assessment & Plan Chart Review Chart Review: Acceptable Risk for Surgery and Patient NOT seen in Pre Admission Testing Consults Requested none ASA ASA3 Proposed Anesthesia Anesthesia Type: MAC History Surgery Operation Date: 02/26/25 13:30 Proposed Procedures p Cystoscopy - Raphael Andrews MD Height/Weight Height: 5 ft 3 in Weight: 90 kg Allergies Allergy/AdvReac Type Severity Reaction Status Date / Time No Known Allergies Allergy Verified 12/27/24 08:42 Medications Home Medications Medication Instructions Recorded Confirmed Last Taken buspirone 5 mg tablet 5 mg PO BID #180 tabs 12/27/24 02/25/25 Unknown Active Medications Generic Name Dose Route Start Last Admin Trade Name Freq PRN Reason Stop Dose Admin Buspirone HCl 5 mg 02/26/25 09:00 02/26/25 07:39 Buspirone 5 Mg Tab PO 03/28/25 08:59 5 mg BID ERNESTINA Administration Potassium Chloride/Sodium Chloride 20 meq in 1,000 mls @ 100 mls/hr 02/25/25 22:58 02/26/25 00:34 Normal Saline W/20 Meq Kcl IV 02/26/25 08:57 100 mls/hr .Q10H STA Administration Pantoprazole Sodium 40 mg in 10 mls @ 5 mls/min 02/26/25 09:00 02/26/25 07:39 Protonix IV 03/28/25 08:59 5 mls/min DAILY ERNESTINA Administration Tamsulosin HCl 0.4 mg 02/26/25 09:00 02/26/25 07:39 Tamsulosin Hcl 0.4 Mg Cap PO 03/28/25 08:59 0.4 mg QAM ERNESTINA Administration Past Medical History Medical History Diet controlled gestational diabetes mellitus (GDM), antepartum Abnormal MSAFP (maternal serum alpha-fetoprotein), elevated Advanced maternal age (AMA) in Hx of varicella Pilonidal cyst obese anxiety UTI HLD Right Hydronephrosis Exercise / Class Metabolic Activity II 4-5 Yardwork/Stairs/Walk up hill Past Family History Family History Mother Dyslipidemia Hypertension Father Heart disease Myocardial infarction Denies family history of Ovarian cancer Prostate cancer Diabetes Breast cancer Lung cancer Colorectal cancer Cancer Past Surgical History Surgical History S/P surgical removal of pilonidal cyst [place] teeth removed Past Anesthesia History No Hx of Anesthesia Complications and No Family Hx of Anesthesia Complications History of PONV No Hx of PONV and No Hx of Motion Sickness Social History Smoking Status: Never smoker Do You Dip or Chew Tobacco: No Hx Alcohol Use: No Hx Substance Use: No substance use type: does not use Physical Exam Vital Signs Last Vital Signs Temp 36.8 C 02/26/25 07:47 Pulse 102 H 02/26/25 07:47 Resp 18 02/26/25 07:47 BP 124/84 02/26/25 07:47 Pulse Ox 97 02/26/25 07:47 O2 Del Method Room Air 02/26/25 07:47 Testing Laboratory Results 02/25/25 17:54 02/25/25 17:54 Urine Color Yellow 02/25/25 17:54 Urine Appearance Clear (Clear) 02/25/25 17:54 Urine pH 8.0 (4.5-7.5) H 02/25/25 17:54 Ur Specific [place] 1.011 (1.000-1.030) 02/25/25 17:54 Urine Protein Negative (Negative) 02/25/25 17:54 Urine Glucose (UA) Negative (Negative) 02/25/25 17:54 Urine Ketones Trace (Negative) H 02/25/25 17:54 Urine Nitrite Negative (Negative) 02/25/25 17:54 Ur Leukocyte Esterase 3+ (Negative) H 02/25/25 17:54 Urine WBC (Auto) >50 /hpf (0-5) H 02/25/25 17:54 Urine RBC (Auto) 6-10 /hpf (0-2) H 02/25/25 17:54 U Hyaline Cast (Auto) 0-2 /lpf (0-2) 02/25/25 17:54 U Epithel Cells (Auto) 6-10 /hpf (0-2) H 02/25/25 17:54 Urine Bacteria (Auto) 1+ (None Seen) H 02/25/25 17:54 Electrocardiogram Date: 02/25/25 Findings: + ST @ (@ 115;? anter. infarct,age ?)
--- NOTE | 2025-02-26 08:59 | Urology Consultation ---
Date of Consultation February 26, 2025 Assessment & Plan (1) Urolithiasis: Plan Small stone in the right distal ureter. Associated symptoms on arrival. She did have a relatively notable leukocytosis of 20,000, however she has not exhibited fevers, etc. She has been tachycardic but improving. Subjectively, she reports that she is far better than she was on arrival. Today I offered her intervention via cystoscopy and right ureteral stent placement. We discussed this in detail with risks, benefits, expectations discussed including the need for second surgery in the future to definitively treat the stone. At present, she prefers not to engage in intervention. She feels that she has improved considerably and is nontoxic and would like to ideally go home and try to pass the stone spontaneously. I do not think this is unreasonable, I would like to see if her leukocytosis improves before she leaves. She has not yet had labs today. Presuming she remains stable and her leukocytosis is moderately improved, I think she could go home with pain medication, tamsulosin, probably some antibiotics as a precautionary measure although I do not feel that she is necessarily infected. She would then follow-up with a CT scan midweek as an outpatient to determine if she has passed the stone. History of Present Illness Attending Physician: Bernadette Roberts MD History of Present Illness 39-year-old female presented to the emergency room yesterday secondary to several weeks of right flank and hip pain Full evaluation at that time revealed that she has a very small distal ureteral calculus with some periureteral inflammation There is a question of some possible lymph nodes on the CTI have personally reviewed and interpreted the CT. Uncertain, however I suspect these are likely related to the stone but they may be separate and causing her discomfort. What ever the case, she has subjectively far improved today. She has not yet had labs and she remains borderline tachycardic with a pulse of 100 and Her pain, however, has resolved entirely. She does not have dysuria or severe urinary frequency. She has not had any fevers or chills overnight. Allergies Allergy/AdvReac Type Severity Reaction Status Date / Time No Known Allergies Allergy Verified 12/27/24 08:42 Home Medications Medication Instructions Recorded Confirmed Type buspirone 5 mg tablet 5 mg PO BID #180 tabs 12/27/24 02/25/25 Rx Patient History Medical History Diet controlled gestational diabetes mellitus (GDM), antepartum Abnormal MSAFP (maternal serum alpha-fetoprotein), elevated Advanced maternal age (AMA) in Hx of varicella Pilonidal cyst Surgical History S/P surgical removal of pilonidal cyst [place] teeth removed Family History Mother Dyslipidemia Hypertension Father Heart disease Myocardial infarction Denies family history of Ovarian cancer Prostate cancer Diabetes Breast cancer Lung cancer Colorectal cancer Cancer Social History Smoking Status: Never smoker Second Hand Exposure: No; Do You Dip or Chew Tobacco: No; Hx Alcohol Use: No Hx Substance Use: No Preferred Language: South African Communication Ability: Effective Visual Impairment: No Limitations Hearing Ability: Normal Superintendent [employer] Required: No Beliefs That Will Affect Care: None marital status: marital status details: Francois Mejia (43) [phone] Current Living Situation: Family Current Living Situation Comment: Pt lives with and daughter current occupational status: employed current occupation: [employer] How many Children do You have: 2 Other Information That Helps Us Care for You: No Feels Safe at Home: Yes Safety Concerns: Feels Safe At This Time Childhood Exposure to Second-Hand Smoke: No Diet: regular caffeine: Yes during the past year weight has: remained stable Dental Care, Regularly: Yes Physical Activity Frequency: 1-2 Times per Week Seatbelt Use: always Sunscreen Use: Yes Assistive Devices: Glasses Review of Systems Review of Systems: The patient denies chest pain, palpitations, shortness of breath, dyspnea on exertion, cough, lower extremity swelling, sore throat, fevers, chills, sweats, nausea, vomiting, diarrhea , constipation, blood in urine or stool, dysuria, urinary frequency or urgency, lightheadedness, dizziness, headache, memory loss, loss of consciousness, rash, abnormal bruising or bleeding, imbalance, focal weakness, numbness or tingling in arms or legs, generalized arthralgias or myalgias, neck pain, or night sweats. The review of systems is otherwise negative other than for that already noted above, and at least 10 systems have been reviewed. Physical Exam Constitutional: well developed and well nourished Neck: neck nontender Respiratory: normal respiratory effort; no respiratory distress and does not use accessory muscles Cardiovascular: Rate/Rhythm: regular rate Vessels: radial pulses present Extremities: no edema Gastrointestinal (Abdomen): Inspection/Auscultation: abdomen normal to inspection Percussion/Palpation: abdomen soft; abdomen nontender and no guarding Musculoskeletal: Head/Neck/Chest: normocephalic and head atraumatic Extremities: extremities normal to inspection Skin: no rashes and no lesions Trauma: no evidence of skin trauma Neurologic: awake; not obtunded Speech / Cognition: normal speech Motor/Sensory: no tremor Psychiatric: Orientation: alert and oriented x 3 Lymphatic: no lymphadenopathy Results & Data Vital Signs (Past 12 Hours) Vital Signs Temp Pulse Pulse Resp BP BP BP 02/26/25 07:47 36.8 C 102 H 18 124/84 02/26/25 07:40 02/26/25 05:48 115 H 02/26/25 02:41 36.8 C 106 H 16 110/67 02/26/25 00:29 107 H 02/26/25 00:29 36.7 C 110 H 18 122/85 02/26/25 00:02 02/25/25 23:00 02/25/25 22:24 115 H 02/25/25 22:00 116 H 20 132/89 02/25/25 21:00 109 H 18 137/88 Pulse Ox O2 Del Method 02/26/25 07:47 97 Room Air 02/26/25 07:40 Room Air 02/26/25 05:48 02/26/25 02:41 94 Room Air 02/26/25 00:29 02/26/25 00:29 94 Room Air 02/26/25 00:02 Room Air 02/25/25 23:00 Room Air 02/25/25 22:24 02/25/25 22:00 96 02/25/25 21:00 97 PG Care Time/CCT Total # of Minutes Spent Total Time Spent with Patient: Total time spent is greater than 50% in coordination of care (as documented) at patient's floor/unit and/or counseling patient: Coding Level of Care Code 26853 IN/OBS CONSULT LVL 3,45M Diagnoses Urolithiasis N20.9
[2025-02-26 09:45] LABS: Hematocrit (blood only) 32.7 % (37.0-47.0); Hemoglobin 11.1 g/dL (12.0-16.0); Immature Granulocytes # (auto) 0.10 K/uL (0.01-0.20); Immature Granulocytes % (auto) 0.7 %; Mean Corpuscular Hemoglobin 29.8 pg (25.0-34.0); Mean Corpuscular Volume 87.7 fL (80.0-100.0); Platelet Count 289 K/uL (130-400); RDW Standard Deviation 41.0 fL (36.4-46.3); Red Blood Count 3.73 M/uL (4.20-5.40); White Blood Count 14.19 K/ul (4.8-10.8)
[2025-02-26 10:07] LABS: Anion Gap 5.0 (3-11); Blood Urea Nitrogen 5.0 mg/dl (6-23); Calcium 8.6 mg/dl (8.6-10.3); Carbon Dioxide 25.0 mmol/L (21-32); Chloride 109.0 mmol/L (98-107); Creatinine Clr Calc Pharmacy 146.0 ml/min; Glucose 86.0 mg/dl (70-99(Fasting)); Potassium 4.4 mmol/L (3.5-5.1); Sodium 139.0 mmol/L (136-145)
[2025-02-26 12:26] VITALS: BP 110/67
--- NOTE | 2025-02-26 14:52 | Hospitalist Progress Note ---
Date of Service February 26, 2025 Assessment & Plan (1) Hydronephrosis of right kidney: (2) Right distal ureteral calculus: (3) Hypokalemia: (4) Urinary tract infection: Plan The patient is a 39-year-old female with past medical history including anxiety, obesity, intraductal papilloma of right breast, and cystic fibrosis carrier. She presents to the emergency department with a few weeks of weakness, chills, right hip pain, and decreased sleep due to pain. Workup in the emergency department included [place] abnormalities: WBC 20.43, potassium 3.4, glucose 103, urinalysis positive for infection. CT scan of abdomen pelvis shows a right 2.5 distal ureteral calculus, and right hydronephrosis. There is also compression from lymphadenopathy group and right hemipelvis of 3.6 x 3.4 cm. ##5 mm distal right ureteral calculus/right hydronephrosis/urinary tract infection drinking water this am and tolerating without n/v UA with pyuria, 3+leuks, UC pending empiric Ceftriaxone 2GMX1 Status post 2 L Plasma-Lyte in the ED NSS + KCl 20 mEq at 100 mL/h x 1 L Acetaminophen 1 g IV every 8 hours as needed for mild pain or fever Pantoprazole 40 mg IV on arrival Tamsulosin 0.4 mg p.o. on arrival CBC with leukocytosis on arrival-->20.43, downtrended to 14.19 d/c with urology follow up and repeat CT follow up-->declined inpatient stent intervention Tramadol prn, Tylenol/Motrin prn for pain control on d/c Flomax 0.4 po on d/c Cefdinir 300mg po BID X7d on d/c ##Hypokalemia Potassium 3.4 on admission Status post Plasma-Lyte 2 L in the ED NSS + KCl 20 mEq at 100 mL x 1 L Mg WNL repeat K 4.4 ##Anxiety Continue buspirone ##Right hemipelvis lymph nodes measuring 3.6X3.4cm additional cause of right hip pain? close follow up with CT imaging-->possible repeat with urology as early as this Wed expressed to patient f/u imaging needed with PCP if not done with urology to evaluate if further workup warranted Admission and Anticipated Discharge Date Admission Date: February 25, 2025 Subjective She is feeling much better compared to her presentation to emergency department last night. She is nontoxic when evaluated in her room. Her right hip pain has fully resolved. Had been experiencing chills and weakness over the course of the past few weeks with no discernable LUTS. Seen by urology this am with discussion surrounding stent placement-->she has d eclined intervention. no nausea/vomiting. Interested in d/c home with urology follow up. Review of Systems Review of Systems: All systems reviewed & are unremarkable except as noted in Subjective Physical Exam Physical Exam: GENERAL APPEARANCE: A&O. Sitting comfortably in bed. NAD. SKIN: Normal color without rashes or lesions. Normal turgor. HEENT: Head AT/NC. Buccal mucosa is moist and pink. HEART: RRR without m/g/r LUNGS: Normal inspiratory effort. CTA without w/r/r ABDOMEN: No guarding or rigidity. Normoactive BS in all four quadrants. Abdomen soft and NT. MSK: No bony gross/deformities throughout. ROM intact. EXTREMITIES: No edema, No peripheral cyanosis. Results & Data Results & Data Vital Signs (Past 12 Hours) Vital Signs Temp Pulse Pulse Resp BP BP Pulse Ox 02/26/25 12: 36.8 C 102 H 18 124/84 110/67 97 02/26/25 07:47 36.8 C 102 H 18 124/84 97 02/26/25 07:40 02/26/25 05:48 115 H 02/26/25 02:41 36.8 C 106 H 16 110/67 94 O2 Del Method 02/26/25 12:25 02/26/25 07:47 Room Air 02/26/25 07:40 Room Air 02/26/25 05:48 02/26/25 02:41 Room Air Laboratory Results Labs reviewed: CBC, BMP PG Care Time/CCT Total # of Minutes Spent Total Time Spent with Patient: Total time spent is greater than 50% in coordination of care (as documented) at patient's floor/unit and/or counseling patient: Coding Level of Care Code 29781 SUB INP/OBS CARE 2/35MIN Diagnoses Hydronephrosis of right kidney N13.30 Right distal ureteral calculus N20.1 Hypokalemia E87.6 Urinary tract infection N39.0
--- NOTE | 2025-02-27 05:59 | Electrocardiogram Report ---
Test Reason : Blood Pressure : */* mmHG Vent. Rate : 115 BPM Atrial Rate : 115 BPM P-R Int : 134 ms QRS Dur : 74 ms QT Int : 324 ms P-R-T Axes : 30 12 26 degrees QTcB Int : 448 ms Sinus tachycardia Cannot rule out Anterior infarct , age undetermined Abnormal ECG No previous ECGs available Confirmed by Jefferson Negro ([id number] on 02/27/2025 5:58:52 AM Referred By: REFERRED SELF Confirmed By: Jefferson Negro
== END 2025-02-26 13:16 | disposition home or self-care (01) | DRG 690 ==
LOC: ED 17:26 → 2N 23:06 → SUATTDRO 23:06 → 2N 02-26 00:02